=== PATIENT | female | born 2005 | race Caucasian/White ===

== ENCOUNTER 2025-01-29 10:20 | Outpatient (AMB) | payer BC, SELFPAY ==
--- NOTE | 2025-01-29 10:23 | MHC.PC.OV ---
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 Intake Note: Pt is here today as a New Patient/ PE Allergies No Known Allergies Allergy (Verified 01/29/25 10:49) Medication List - Last Reconciled 01/29/25 by Lesly Kincaid MD No Known Home Meds Tobacco use date assessed: 01/29/25 Dental Screening Dental Screen Date: 01/29/25 Did you have a dental visit in the last 12 months?: Yes Did you have a dental problem in the last 6 months where you did not have access to dental care?: No Was dental information given to patient?: Patient has dentist 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 He is up-to-date with her childhood vaccinations and had a Tdap in 2014. Past medical history significant for episodes of depression and anxiety, currently in remission. She was previously on Prozac 30 mg daily which has helped. [facility] Medical History (Updated 01/29/25 @ 11:02 by Lesly Kincaid MD) History of anemia History of depression Surgical History (Updated 02/02/25 @ 04:06 by Lesly Kincaid MD) No pertinent past surgical history Family History (Updated 01/29/25 @ 10:58 by Lesly Kincaid MD) Mother Mental health disorder Social History Housing: House Patient Tobacco Use Status: Former Tobacco user e-Cigarette/Vaping Use: Currently Using service: No Current occupational status: employed Cognitive needs: No Hearing needs: No Vision needs: No Female Reproductive History Menstrual Age of Menarche: 13 Duration of menses: 3-5 days Date of last menstrual period: 01/16/25 control method: condoms Questionnaire PHQ-9 Over the last 2 weeks, how often have you been bothered by any of the following problems? 1. Little interest or pleasure in doing things: not at all 2. Feeling down, depressed, or hopeless: not at all 3. Trouble falling or staying asleep, or sleeping too much: several days 4. Feeling tired or having little energy: several days 5. Poor appetite or overeating: not at all 6. Feeling bad about yourself - or that you are a failure or have let yourself or your family down: several days 7. Trouble concentrating on things, such as reading the newspaper or watching television: several days 8. Moving or speaking so slowly that other people could have noticed. Or the opposite - being so fidgety or restless that you have been moving around a lot more than usual: not at all 9. Thoughts that you would be better off or of hurting yourself in some way: not at all Total score: 4 Depression Screening Interpretation: Negative Depression Screening Done: Yes 21746 - PHQ-9 Billing: Yes Source: Developed by Drs. Tommy Garcia, Mirella Corbett, Eleazar Guallpa and colleagues, with an educational genesis from [employer]. Thrive Questionnaire Date Thrive assessed: 01/28/25 I am a: Patient What is your living situation today?: I have a steady place to live Within the past 12 months, did the food you bought not last and you didn't have the money to get more?: Never true Within the past 12 months, did you worry whether your food would run out before you got money to buy more?: Never true Do you have trouble paying for medicines?: No Do you have trouble getting transportation to medical appointments?: No Do you have trouble paying your heating and electricity bill?: No Do you have trouble taking care of your child, family member or friend?: No Do you have trouble with day-to-day activities such as bathing, preparing meals, shopping, managing finances, etc.?: No Are you currently unemployed and looking for a job?: No Are you interested in more education?: No Please select the resources that you would like help with: None Currently or been in a relationship where the following occur: No concerns reported THRIVE Score: 0 AUDIT C Alcohol Use Questionnaire (AUDIT-C) 1. How often do you have a drink containing alcohol?: Monthly or less 2. How many drinks containing alcohol do you have on a typical day when you are drinking?: 3 or 4 3. How often do you have six or more drinks on one occasion?: Never Total Score: 2 MARISEL-7 AMB Questionnaire MARISEL-7 Date MARISEL - 7 assessed: 01/29/25 Feeling nervous, anxious, or on edge: 0 = Not at all Not being able to stop or control worryin = Several days Worrying too much about different things: 1 = Several days Trouble relaxin = Not at all Being so restless that it is hard to sit still: 0 = Not at all Becoming easily annoyed or irritable: 3 = Nearly every day Feeling afraid as if something awful might happen: 0 = Not at all Total MARISEL-7 score (0-4 normal; 5-9 mild; 10-14 moderate; 15-21 severe): 5 Source: Developed by Drs. Tommy Garcia, Mirella Corbett, Eleazar Guallpa and colleagues, with an educational genesis from [employer]. MARISEL-7 Assessment Billing MARISEL-7 Assessment Tool: MARISEL-7 Assessment 64835 Review of Systems Const Denies body aches, Denies fatigue, Denies fever(s), Denies headache(s) and Denies weakness Eyes Denies change in vision, Denies eye discharge and Denies itchy eyes ENT Denies dizziness, Denies headache(s), Denies nasal congestion, Denies nasal discharge and Denies sore throat Card Denies chest pain, Denies lightheadedness, Denies palpitations and Denies dyspnea Resp Denies chest congestion, Denies cough, Denies dyspnea and Denies wheezing GI Denies abdominal pain, Denies change in bowel habits and Denies heartburn Denies hematuria, Denies urinary frequency, Denies dysuria and Denies urinary urgency Musc Reports no additional complaints Skin/Breast Denies breast pain, Denies breast mass, Denies lesions and Denies rash Neuro Denies dizziness, Denies headache(s) and Denies weakness Psych Reports no additional complaints Endo Denies fatigue, Denies polydipsia, Denies polyuria and Denies palpitations Woody/Lymph Denies easy bruising Aller/Immun Denies itchy eyes, Denies seasonal rhinorrhea and Denies wheezing Physical exam (Primary Care) Vital Signs: Last Vital Signs Temp 98.2 F 01/29/25 10:30 Pulse 85 01/29/25 10:30 Resp 16 01/29/25 10:30 BP 102/60 01/29/25 10:30 Pulse Ox 100 01/29/25 10:30 Oxygen Delivery Method Room Air 01/29/25 10:30 BMI result Body Mass Index 22.5 Tobacco/Smoking Status: Tobacco use Status Tobacco use date assessed 01/29/25 01/29/25 10:37 Patient Tobacco Use Status Former Tobacco user 01/29/25 10:37 e-Cigarette/Vaping Use Currently Using 01/29/25 10:37 PHQ-9: PHQ-9 Score PHQ-9: Total score 4 01/29/25 16:54 Depression Screening Interpretation: Negative Thrive Assessment: Date of Thrive Assessment Date Thrive assessed 01/28/25 01/29/25 10:24 Currently or been in a relationship where the following occur: No concerns reported Advance Care Planning discussion: Completed/Scanned Date of discussion: 01/29/25 Who was present: Patient Forms completed: Health Care Proxy Time spent: 16-45 minutes Actual minutes spent: 3 Const General: no acute distress and alert Orientation/consciousness: patient oriented x3 HENMT Head: Yes normocephalic Ears: external ears normal, TM's normal bilaterally and EAC's normal General nose exam: Normal external nose present and No nasal discharge present Face and sinus: Yes face symmetric Mouth: Normal oral and palatal mucosa present, lip normal, tongue normal, oropharynx normal and moist mucous membranes Eyes General: appearance normal, both eyes and all related structures Eyelids: Yes eyelids normal Conjunctivae: conjunctivae normal Sclerae: sclerae normal Pupils: Equal, round and reactive pupils present EOM: EOMs intact bilaterally Neck Neck: Yes full ROM, Yes no lymphadenopathy and Yes supple Thyroid: Thyroid normal Chest Breast/axilla palpation: normal palpation of the breasts Resp Effort & Inspection: normal respiratory effort and able to speak in complete sentences Auscultation: clear to auscultation bilaterally Cardio Rate: regular rate Rhythm: regular rhythm Heart sounds: S1 normal heart sound present and S2 normal heart sound present GI Palpation (GI): Soft to palpation, nontender, no guarding and no masses Auscultation: normal bowel sounds General: Yes no CVA tenderness Back/Spine/Pelvis Back: no CVA tenderness and No back tenderness Skin General skin exam: no rashes or lesions noted Neuro General: patient oriented x3, gait normal, moves all extremities, Normal light touch and pain sensation, no focal motor deficits and CN's II-XI intact bilaterally Cranial nerves: Yes Equal, round and reactive pupils present Cognition (Neuro): normal cognition Gait exam (Neuro): Normal gait present Motor exam (neuro): 5/5 motor strength present throughout Extrem General: Yes normal to inspection, Yes full ROM, Yes no joint enlargement, Yes no pedal edema and Yes normal gait Psych Appearance: grossly normal and well kempt Mental Status: mental status grossly normal Speech and movement: Normal speech and movement present Affect: normal affect Attitude: cooperative Thought process: Normal thought process present Thought content: Normal thought content present Coding Level of Care Code New Pt Prev Care 18-39yr(51749 Diagnoses Annual visit for general adult medical examination with abnormal findings Z00. Encounter for counseling regarding advance directives Z71.89 Additional Codes MARISEL-7 Assessment Billing - MARISEL-7 Assessment Tool: MARISEL-7 Assessment 37563 ([id number]) PHQ-9 - 97473 - PHQ-9 Billing: Yes ([id number]) Vital Signs *Quality* - Advance Care Planning discussion: Completed/Scanned ([id number]) Vital Signs *Quality* - Time spent: 16-45 minutes ([id number]) Assessment & Plan Assessment & Plan (1) Annual visit for general adult medical examination with abnormal findings: Code(s): Z00.01 - Encounter for general adult medical examination with abnormal findings Plan: Will check appropriate labs. Recommended dental visit every 6 months and regular eye exams, at least every 2 years. Take adequate calcium in diet and vitamin-D 3 at 2000 IU per cap once a day, in addition to weight-bearing exercises to help maintain good muscle tone and weight control. Instructed to do self-breast exam, and recommended to get yearly mammogram, starting at age 40. Referred to [facility] for routine Pap and pelvic exam (2) Encounter for counseling regarding advance directives: Code(s): Z71.89 - Other specified counseling Plan: Initiated the conversation about Advanced Directives. Advanced Directives help patients prepare for current and future decisions about their medical treatment and place of care. Discussed with patient that it is a process where a patients current condition and prognosis are reviewed, their wishes for information regarding their illness are elicited, and likely medical dilemmas are presented and options discussed. Healthcare proxy form completed today. The form can be amended as needed, reviewed yearly and make changes as needed Orders: Orders Complete Blood Count Auto Diff 01/29/25 Z00.01 - Encounter for general adult medical examination with abnormal findings, Z13.1 - Encounter for screening for diabetes mellitus, Z13.220 - Encounter for screening for lipoid disorders, Z71.89 - Other specified counseling, Z86.2 - Personal history of diseases of the blood and blood-forming organs and certain disorders involving the immune mechanism Aspartate Amino Transferase 01/29/25 Z00.01 - Encounter for general adult medical examination with abnormal findings, Z13.1 - Encounter for screening for diabetes mellitus, Z13.220 - Encounter for screening for lipoid disorders, Z71.89 - Other specified counseling, Z86.2 - Personal history of diseases of the blood and blood-forming organs and certain disorders involving the immune mechanism Basic Metabolic Panel Fasting 01/29/25 Z00.01 - Encounter for general adult medical examination with abnormal findings, Z13.1 - Encounter for screening for diabetes mellitus, Z13.220 - Encounter for screening for lipoid disorders, Z71.89 - Other specified counseling, Z86.2 - Personal history of diseases of the blood and blood-forming organs and certain disorders involving the immune mechanism IRON PROFILE 01/29/25 Z00.01 - Encounter for general adult medical examination with abnormal findings, Z13.1 - Encounter for screening for diabetes mellitus, Z13.220 - Encounter for screening for lipoid disorders, Z71.89 - Other specified counseling, Z86.2 - Personal history of diseases of the blood and blood-forming organs and certain disorders involving the immune mechanism Alanine Aminotransferase 01/29/25 Z00.01 - Encounter for general adult medical examination with abnormal findings, Z13.1 - Encounter for screening for diabetes mellitus, Z13.220 - Encounter for screening for lipoid disorders, Z71.89 - Other specified counseling, Z86.2 - Personal history of diseases of the blood and blood-forming organs and certain disorders involving the immune mechanism Lipid Panel 01/29/25 Z00.01 - Encounter for general adult medical examination with abnormal findings, Z13.1 - Encounter for screening for diabetes mellitus, Z13.220 - Encounter for screening for lipoid disorders, Z71.89 - Other specified counseling, Z86.2 - Personal history of diseases of the blood and blood-forming organs and certain disorders involving the immune mechanism Vitamin D 25-OH Total 01/29/25 Z00.01 - Encounter for general adult medical examination with abnormal findings, Z13.1 - Encounter for screening for diabetes mellitus, Z13.220 - Encounter for screening for lipoid disorders, Z71.89 - Other specified counseling, Z86.2 - Personal history of diseases of the blood and blood-forming organs and certain disorders involving the immune mechanism Referrals WEIGHT CHECKER Referral Z12.4 - Encounter for screening for malignant neoplasm of cervix
[2025-01-29 10:30] VITALS: BP 102/60; PULSE 85; RESP 16; TEMP 36.8; O2SAT 100; BMI 22.5
--- OUTSIDE RECORDS SUMMARY | 2025-01-29 11:54 | XMS_ITS | Encounter Summary ---
Author Organization [facility] Address [address] [place] [address] Phone Care Team Providers Care Hoist Cylinder Loader Name Role Phone Sanjuanita Foy MD Primary Care Provider [phone] Reason for Visit * Reason Comments Med Refill Encounter Details Date Type Department Care Team (Late st Contact Info) Description 09/25/2018 Refill [facility] - [place] [address] [place] [address] Sanjuanita Foy MD [address] [place] [address] Mild persistent asthma without complication Social History Tobacco Use Types Packs/Day Years Used Date Smoking Tobacco: Never Smokeless Tobacco: Never Comments Unknown Sex and Gender Information Value Date Recorded Sex Assigned at Not on file Legal Sex Female 6:14 PM EDT Gender Identity Female 12/20/2022 5:16 PM EDT Sexual Orientation Straight 06/21/2020 3: 56 PM EDT documented as of this encounter Plan of Treatment Not on file documented as of this encounter Visit Diagnoses Diagnosis Mild persistent asthma without complication documented in this encounter Care Teams Hoist Cylinder Loader Relationship Specialty Start Date End Date Sanjuanita Foy MD [address] [place] [address] PCP - General 02/13/18 01/27/25 documented as of this encounter
--- OUTSIDE RECORDS SUMMARY | 2025-01-29 11:54 | XMS_ITS | Encounter Summary ---
Author Organization [facility] Address [address] [place] [address] Phone Care Team Providers Care Contribution Solicitor Name Role Phone Sanjuanita Foy MD Primary Care Provider [phone] Reason for Visit * Reason Onset Date Comments Labs wanted by oral surgeon prior to surgery Encounter Details Date Type Department Care Team (Late st Contact Info) Description 01/27/2025 Telephone [facility] - [place] [address] [place], [place] [id number] Rosario Gerard LPN [address] [place], [place] [id number] Labs wanted by oral surgeon prior to surgery Social History Tobacco Use Types Packs/Day Years Used Date Smoking Tobacco: Never Smokeless Tobacco: Never Alcohol Use Standard Drinks/Week Comments Never 0 (1 standard drink = 0.6 oz pur e alcohol) Hunger/Food Answer Date Recorded In the last 12 months, did y ou or your family ever eat less than you felt you should because there wasn't enough money for food? No 10/04/2023 Stable Housing Answer Date Recorded Are you worried that in the next 2 months you may not have stable housing? No 10/04/2023 Transportation Concerns Answer Date Rec orded In the last 12 months, have you or your family ever had to go without healthcare because you didn't have a way to get there? No 10/04/2023 Hazards in Home Answer Date Recorded Think about the place you li ve. Do you have problems with any of the following? Pests (mice or roaches), mold, no/not working smoke detectors, water leaks, no window guards. No 2022 Financing Utilities Answer Date Recorde d In the last 12 months, has t he electric, gas, oil, or water company threatened to shut off your services in your home? No 10/04/2023 Safety at Home Answer Date Recorded Are you or your family worried about feeling saf e in your home? No 10/04/2023 Outside Support Answer Date Recorded Do you feel that you need mo re support from other people or programs to help you care for yourself or your family? No 10/04/2023 Understanding Health Concerns Answer Da te Recorded Do you need help understandi ng your or your child's healthcare needs (diagnosis, medications, plan, etc.)? No 10/04/2023 Financing Health Concerns Answer Date R ecorded In the last 12 months, was t here a time when your child needed to see a doctor or get medications or supplies but could not because of cost? No 10/04/2023 Missing School or Work Answer Date Baltazar rded Did you or your child miss s chool or work because of a health problem that could have been avoided? No 10/04/2023 Comments No Sex and Gender Information Value Date Recorded Sex Assigned at Not on file Legal Sex Female 6:14 PM EDT Gender Identity Female 12/20/2022 5:16 PM EDT Sexual Orientation Straight 06/21/2020 3: 56 PM EDT documented as of this encounter Miscellaneous Notes * Telephone Encounter - Deborah Salinas LPN - 01/28/2025 1:25 PM EDT Call to mom to let her know labs ordered Patient will be going to [place] this february or March and will have surgery afterwards * Telephone Encounter - Sanjuanita Foy MD - 01/28/2025 12:17 PM EDT Lab orders sent to [facility] * Telephone Encounter - Rosario Gerard LPN - 01/27/2025 1:20 PM EDT To pcp Mom came in office and says that Sandra will be having her wisdom teeth removed but no date scheduled yet. [facility] is requesting the pcp order the following labs CBC, LFT's, INR and Platelets. [facility] Dr. Garry John, DMD Phone nbr is [phone], Fax nbr is [phone] Please advise Please call mom when labs are ordered. documented in this encounter Plan of Treatment Scheduled Orders Name Type Priority Associated Diagnoses Orde r Schedule CBC Lab Routine Preop testing Ordered: 01/28/2025 Hepatic function panel Lab Routine Preop testing Ordered: 01/28/2025 PT w/ INR and PTT Lab Routine Preop testing Ordered: 01/28/2025 documented as of this encounter Visit Diagnoses Diagnosis Preop testing- Primary Unspecified pre-operative examination documented in this encounter Care Teams Contribution Solicitor Relationship Specialty Start Date End Date Sanjuanita Foy MD [address] [place] [address] PCP - General 02/13/18 01/27/25 documented as of this encounter
--- OUTSIDE RECORDS SUMMARY | 2025-01-29 11:54 | XMS_ITS | Encounter Summary ---
Author Organization [facility] Address [address] [place] [address] Phone Care Team Providers Care Termite Exterminator Name Role Phone Sanjuanita Foy MD Primary Care Provider [phone] Reason for Visit * Reason Comments Med Change Request Encounter Details Date Type Department Care Team (Late st Contact Info) Description 12/18/2022 Refill [facility] - [address] [place] [address] Arelis Rowland, JOSE [address] [place], [place] [phone] Current moderate episode of major depressive disorder, unspecified whether recurrent Social History Tobacco Use Types Packs/Day Years Used Date Smoking Tobacco: Never Smokeless Tobacco: Never Alcohol Use Standard Drinks/Week Comments Never 0 (1 standard drink = 0.6 oz pur e alcohol) Hunger/Food Answer Date Recorded In the last 12 months, did y ou or your family ever eat less than you felt you should because there wasn't enough money for food? No 06/21/2020 Stable Housing Answer Date Recorded Are you worried that in the next 2 months you may not have stable housing? No 06/21/2020 Transportation Concerns Answer Date Rec orded In the last 12 months, have you or your family ever had to go without healthcare because you didn't have a way to get there? No 06/21/2020 Hazards in Home Answer Date Recorded Think about the place you li ve. Do you have problems with any of the following? Pests (mice or roaches), mold, no/not working smoke detectors, water leaks, no window guards. No 2019 Financing Utilities Answer Date Recorde d In the last 12 months, has t he electric, gas, oil, or water company threatened to shut off your services in your home? No 06/21/2020 Safety at Home Answer Date Recorded Are you or your family worried about feeling saf e in your home? No 06/21/2020 Outside Support Answer Date Recorded Do you feel that you need mo re support from other people or programs to help you care for yourself or your family? No 06/21/2020 Understanding Health Concerns Answer Da te Recorded Do you need help understandi ng your or your child's healthcare needs (diagnosis, medications, plan, etc.)? No 06/21/2020 Financing Health Concerns Answer Date R ecorded In the last 12 months, was t here a time when your child needed to see a doctor or get medications or supplies but could not because of cost? No 06/21/2020 Missing School or Work Answer Date Baltazar rded Did you or your child miss s chool or work because of a health problem that could have been avoided? No 06/21/2020 Comments No Sex and Gender Information Value Date Recorded Sex Assigned at Not on file Legal Sex Female 6:14 PM EDT Gender Identity Female 12/20/2022 5:16 PM EDT Sexual Orientation Straight 06/21/2020 3: 56 PM EDT documented as of this encounter Miscellaneous Notes * Telephone Encounter - Arelis Rowland NP - 12/18/2022 8:58 AM EDT New dose change at last eli, f/u in a few days. Need to be seen to evaluate efficacy before 90 day supply is sent documented in this encounter Plan of Treatment Not on file documented as of this encounter Visit Diagnoses Diagnosis Current moderate episode of major depressive disorder, unspecified whether recurrent documented in this encounter Care Teams Termite Exterminator Relationship Specialty Start Date End Date Sanjuanita Foy MD [address] [facility] [place] [id number] PCP - General 02/13/18 01/27/25 documented as of this encounter
--- OUTSIDE RECORDS SUMMARY | 2025-01-29 11:54 | XMS_ITS | Encounter Summary ---
Author Organization [facility] Address [address] [place] [address] Phone Care Team Providers Care Environmental Science Professor Name Role Phone Sanjuanita Foy MD Primary Care Provider [phone] Reason for Visit * Reason Comments Med Change Request Encounter Details Date Type Department Care Team (Late st Contact Info) Description 10/17/2022 Refill [facility] - [address] [place] [address] Arelis Rowland, JOSE [address] [place], [place] [phone] Mixed anxiety and depressive disorder Social History Tobacco Use Types Packs/Day Years [...] as of this encounter Visit Diagnoses Diagnosis Mixed anxiety and depressive disorder Dysthymic disorder documented in this encounter Care Teams Environmental Science Professor Relationship Specialty Start Date End Date Sanjuanita Foy MD [address] [facility] [place] [address] PCP - General 02/13/18 01/27/25 documented as of this encounter
--- OUTSIDE RECORDS SUMMARY | 2025-01-29 11:54 | XMS_ITS | Encounter Summary ---
Author Organization [facility] Address [address] [place] [address] Phone Care Team Providers Care Melt House Supervisor Name Role Phone Sanjuanita Foy MD Primary Care Provider [phone] Reason for Visit * Reason Comments Med Change Request Encounter Details Date Type Department Care Team (Late st Contact Info) Description 10/15/2024 Refill [facility] - [place] [address] [place], [place] [phone] Rosario Gerard LPN [address] [place], [place] [phone] Current moderate episode of major depressive disorder, [...] encounter Miscellaneous Notes * Telephone Encounter - Rosario Gerard LPN - 10/22/2024 9:46 AM EST Refill sent out for fluoxetine 20 mg 10/15/24 Notification from pharmacy that insurance requires 90 day Please resend it appropriate documented in this encounter Plan of Treatment Not on file documented as of this encounter Visit Diagnoses Diagnosis Current moderate episode of major depressive disorder, unspecified whether recurrent documented in this encounter Care Teams Melt House Supervisor Relationship Specialty Start Date End Date Sanjuanita Foy MD [address] [facility] [place] [address] PCP - General 02/13/18 01/27/25 documented as of this encounter
--- OUTSIDE RECORDS SUMMARY | 2025-01-29 11:54 | XMS_ITS | Encounter Summary ---
Author Organization [facility] Address [address] [place] [address] Phone Care Team Providers Care Kinesiology Professor Name Role Phone Sanjuanita Foy MD Primary Care Provider [phone] Encounter Details Date Type Department Care Team (Late st Contact Info) Description 05/18/2011 Conversion Encounter Pediatric And Adolescent Medicine [facility] [address] [place] [address] Social History Tobacco Use Types Packs/Day Years Used Date Smoking Tobacco: Never Assessed Comments Unknown Sex and Gender Information Value Date Recorded Sex Assigned at Not on file Legal Sex Female 6:14 PM EDT Gender Identity Female 12/20/2022 5:16 PM EDT Sexual Orientation Straight 06/21/2020 3: 56 PM EDT documented as of this encounter Plan of Treatment Not on file documented as of this encounter Visit Diagnoses Not on filedocumented in this encounter Care Teams Kinesiology Professor Relationship Specialty Start Date End Date Sanjuanita Foy MD [address] [place] [address] PCP - General 02/13/18 01/27/25 documented as of this encounter
--- OUTSIDE RECORDS SUMMARY | 2025-01-29 11:54 | XMS_ITS | Clinical Summary ---
Author Organization [facility] Address [address] [place] [address] Phone Care Team Providers Care Packing Clerk Name Role Phone Unavailable Primary Care Provider Unavailabl e Allergies No known active allergies Medications No known medications Active Problems Problem Noted Date Diagnosed Date Urinary (tract) obstruction 07/18/2022 Assessment & Plan (07/18/2022 3:30 PM EDT): Symptoms seem drastically improved. No CVA tenderness noted on examination. Will send out for culture to make sure completely treated at this time. Resolved Problems Problem Noted Date Diagnosed Date Resolved Date Current moderate episode of major depressive disorder 07/08/2021 10/22/2024 Assessment & Plan (04/16/2024 12:35 PM EDT): GAD7 and PHQ9 scores are pretty stable. Currently taking fluoxetine 30 mg in the morning. No therapy at this time. Recheck in 6 months. 04/16/2024 11:01 AM 10/04/2023 2:42 PM 05/15/2023 5:40 PM Generalized Anxiety Disorder (GAD7) MARISEL 7 Score 10 9 5 5-9 mild anxiety; 10-14 moderate anxiety; >15 severe anxiety 04/16/2024 11:02 AM 10/04/2023 2:44 PM 05/15/2023 5:41 PM PHQ9 Screen(s) Score 14 11 10 1-4 = Minimal depression, 5-9 = Mild depression, 10-14 = Moderate depression, 15-19 = Moderately severe depression, 20-27 = Severe depression Need for vaccination 05/23/2018 020 Mild persistent asthma without complication 05/16/2018 10/04/2023 Encounters Date Type Department Care Team Description 01/27/2025 Telephone [facility] - [place] [address] [facility] [place] [address] Sanjuanita Foy MD PABLO to adult provider 01/27/2025 Telephone [facility] - [place] [address] [place] [address] Rosario Gerard LPN Labs wanted by oral surgeon prior to surgery from Last 3 Months Immunizations Immunization Administration Dates Next Due DTaP 5 08/23/2010, 7,01/17/2006,11/16,2005 HPV Vaccine 9 Valent 11/25/2018,05/23/2018 Hep A, ped/adol 07/23/2007,01/16/2007 Hep B, ped/adol 01/17/2006, 6,2005,07/07 Hib (PRP-T) 10/17/2006, 6,2005,09/12 IPV 08/18/2009, 6,2005,09/12 Influenza, injectable, quadr ivalent, preservative free 06/23/2021,10/29/2019,08/28/2017,08/05 Influenza, injectable, trivalent 014,09/13/2013,09/12/2012,09/07 Influenza, injectable, triva lent, preservative free 07/14/2010,08/18/2009,07/13/2009,07/17,07/23/2007,08/21/2006,07/18/2006 MMR 08/23/2010,10/17/2006 Meningococcal B Trumenba 05/15/2024,10/04/2023 Meningococcal Conj (Menactra) MCV4P 05/15/2017 Meningococcal Conj (Menveo) MCV4O 09/05/2022 Pneumococcal Conjugate 07/18/2006,2005,2005,09/12 Tdap 08/05/2015 Varicella 08/18/2009,07/18/2006 Family History Medical History Relation Name Comments Hearing loss Maternal Grandmother Hyperlipidemia Maternal Grandmother Anxiety disorder Mother Depression Mother Food allergies Mother ADD / ADHD Mother's Brother Anxiety disorder Mother's Brother Relation Name Status Comments Maternal Grandmother Mother Mother's Brother Social History Tobacco Use Types Packs/Day Years [...] Orientation Straight 06/21/2020 3: 56 PM EDT Last Filed Vital Signs Vital Sign Reading Time Taken Comments Blood Pressure 104/70 10/22/2024 1:51 PM EST Pulse 72 10/22/2024 1:51 PM EST Temperature 36.6 ??C (97.9 ??F) 10/22/2024 1:51 PM ES T Respiratory Rate 18 10/22/2024 1:51 PM EST Oxygen Saturation 98% 10/22/2024 1:51 PM EST Inhaled Oxygen Concentration - - Weight 63.4 kg (139 lb 12.8 oz) 10/22/2024 1:51 PM EST Height 162 cm (5' 3.78 ) 10/22/2024 1:51 PM EST Body Mass Index 24.16 10/22/2024 1:51 PM EST Plan of Treatment Health Maintenance Due Date Last Done Comments Influenza Vaccines (#1) 2024 06/23/20, 10/29/2019, 08/28/2017, Additional history exists COVID-19 Vaccine ( - 2023-2 5 season) 2024 Chlamydia and Gonorrhea Screening 10/08/2024 DTaP,Tdap,and Td Vaccines (7 - Td or Tdap) 08/05/2025 08/05/2015, 08/23/2010, 10/17/2006, Additional history exists Hepatitis B Vaccines Completed 01/17/2006, 2005, 2005, Additional history exists Pneumococcal Vaccine Completed 07/18/2006, 01/17/2006, 2005, Additional history exists HIB Vaccines Completed 10/17/2006, 01/06, 2005, Additional history exists Hepatitis A Vaccines Completed 07/23/2007, 01/17/20 07 IPV Vaccines Completed 08/18/2009, 01/06, 2005, Additional history exists Varicella Vaccines Completed 08/18/2009, 07/18/2006 MMR Vaccines Completed 08/23/2010, 10/17/2006 HPV Vaccines Completed 11/25/2018, 05/23/2018 Meningococcal Vaccine Completed 09/05/2022, 017 Men B Vaccine Completed 05/15/2024, 10/04/2023 Insurance [employer] BLUE CARD OUT OF STATE [employer] BLUE CARD OUT OF STATE
--- OUTSIDE RECORDS SUMMARY | 2025-01-29 11:54 | XMS_ITS | Encounter Summary ---
Author Organization [facility] Address [address] [place] [address] Phone Care Team Providers Care Slasher Tender Name Role Phone Sanjuanita Foy MD Primary Care Provider [phone] Reason for Visit * Reason Comments Med Refill Encounter Details Date Type Department Care Team (Late st Contact Info) Description 10/16/2022 Refill Pediatric And Adolescent Medicine - [address] [place] [address] Arelis Rowland, JOSE [address] [place], [place] [phone] Mixed anxiety and depressive disorder Social History [...] encounter Miscellaneous Notes * Telephone Encounter - Abigail Agustin RN - 11/14/2022 5:04 PM EST Mom called back. Told me that after appt with Arelis Rowland 09/19 and med was prescribed that Sandra did not start taking it right away. She was hesitant, so only began the med about 2 weeks ago. Sandra has not said anything to mom about if she feels its helping, or if having any side effects. We booked f/u appt for 11/23/22. * Telephone Encounter - Zohreh Hernandez - 11/14/2022 2:05 PM EST Left additional VM. * Telephone Encounter - Zohreh Hernandez - 10/25/2022 10:48 AM EST Lvm requesting c/b to schedule. * Telephone Encounter - Arelis Rowland NP - 10/17/2022 8:26 AM EST Needs f/u scheduled. Was supposed t f/u 1 week after last appt. Please call to schedule recheck anx/depression ROBIN. documented in this encounter Plan of Treatment Not on file documented as of this encounter Visit Diagnoses Diagnosis Mixed anxiety and depressive disorder Dysthymic disorder documented in this encounter Care Teams Slasher Tender Relationship Specialty Start Date End Date Sanjuanita Foy MD [address] [place] [address] PCP - General 02/13/18 01/27/25 documented as of this encounter
--- OUTSIDE RECORDS SUMMARY | 2025-01-29 11:54 | XMS_ITS | Encounter Summary ---
Author Organization [facility] Address [address] [place] [address] Phone Care Team Providers Care Bias Binding Folder Name Role Phone Sanjuanita Foy MD Primary Care Provider [phone] Reason for Visit * Reason Comments Med Change Request Encounter Details Date Type Department Care Team (Late st Contact Info) Description 12/22/2022 Refill [facility] - [address] [place] [address] Arelis Rowland, JOSE [address] [place], [place] [phone] Current moderate episode of major depressive disorder, [...] recurrent documented in this encounter Care Teams Bias Binding Folder Relationship Specialty Start Date End Date Sanjuanita Foy MD [address] [place] [address] PCP - General 02/13/18 01/27/25 documented as of this encounter
--- OUTSIDE RECORDS SUMMARY | 2025-01-29 11:54 | XMS_ITS | Encounter Summary ---
Author Organization [facility] Address [address] [place] [address] Phone Care Team Providers Care Weatherization And Housing Inspector Name Role Phone Sanjuanita Foy MD Primary Care Provider Reason for Visit * Reason Onset Date Comments PABLO to adult provider 01/27/2025 Encounter Details Date Type Department Care Team (Late st Contact Info) Description 01/27/2025 Telephone [facility] - [place] [address] [place] [address] Sanjuanita Foy MD [address] [place], [place] [phone] PABLO to adult provider Social History Tobacco Use Types Packs/Day Years [...] encounter Miscellaneous Notes * Telephone Encounter - Mariya Bro - 01/28/2025 3:51 PM EDT Records FAXED, scanned into media. * Telephone Encounter - Bharati Agrawal RN - 01/28/2025 10:44 AM EDT Ruchi from [facility] [place] office calling. She is requesting that this office fax Last visit notes, IMMS and any Labs for the appt this pt has next week. Fax # is [phone] Attn Ruchi. To front desk receptionist. * Telephone Encounter - Megan Garcia - 01/27/2025 1:37 PM EDT See PABLO to [facility] documented in this encounter Plan of Treatment Not on file documented as of this encounter Visit Diagnoses Not on filedocumented in this encounter Care Teams Weatherization And Housing Inspector Relationship Specialty Start Date End Date Sanjaunita Foy MD [address] [place] [address] PCP - General 02/13/18 01/27/25 documented as of this encounter
== END 2025-01-29 11:16 | disposition home or self-care (01) ==
PROVIDERS: PCP Internal Medicine; Visit Provider Internal Medicine
DX: Z00.01 Encounter for general adult medical examination with abnormal findings (principal); Z71.89 Other specified counseling; Z00.00 Encounter for general adult medical examination without abnormal findings

== ENCOUNTER → 2025-01-29 10:20 | Outpatient (BNVA) | payer BC, SELFPAY | PROVIDERS: Visit Provider Internal Medicine | DX: Z00.00 Encounter for general adult medical examination without abnormal findings (principal); Z71.89 Other specified counseling | CPT/HCPCS: 96127 ==